=== PATIENT | female | born 1970 | race Caucasian/White ===

== ENCOUNTER 2023-01-24 02:47 | Emergency (ER) | payer OTHER, SELFPAY ==
[2023-01-24 02:50] VITALS: BP 150/86; PULSE 84; O2SAT 98
[2023-01-24 03:09] VITALS: BP 166/110; PULSE 115; RESP 30; TEMP 36.6; O2SAT 99; BMI 18.3
--- NOTE | 2023-01-24 04:46 | ED.OVERDOSE ---
HPI - Overdose General Chief Complaint: Overdose Stated Complaint: od Time Seen by Provider: 01/24/23 04:08 History of Present Illness HPI Narrative: Patient is a 52-year-old female with a history of heroin use. Patient was found in an apartment building after using 3 bags or heroin. Was given Narcan x2. Subsequently patient woke up. She has no complaints. Related Data Allergies Allergy/AdvReac Type Severity Reaction Status Date / Time codeine [CODEINE] Allergy Unknown RASH Unverified 06/04/20 19:25 tigecycline [From TYGACIL] Allergy Unknown RASH Unverified 06/04/20 19:25 TUNA FISH Allergy Intermediate RASH Uncoded 06/04/20 19:25 Review of Systems Review of Systems: Positive history of altered mental status, resolved after Narcan was administered No chest pain or shortness breath no dizziness Yes all other systems are reviewed and are negative FORMERLY [facility], 1928–1983 Past Medical History Attestation statement: The following information was validated with the patient. Social History Social History Advance Directives: No Advance Directives Information Provided: Yes Patient : No Physical Exam Vital Signs: Vital Signs: Last Vital Signs Temp 97.9 F 01/24/23 03:09 Pulse 115 H 01/24/23 03:09 Resp 30 H 01/24/23 03:09 BP 166/110 H 01/24/23 03:09 Pulse Ox 99 01/24/23 03:09 O2 Del Method Room Air 01/24/23 03:09 BMI result Body Mass Index 18.3 Middle age female looks older than stated age Appearance: Alert. Oriented X3. No acute distress. Eyes: Pupils equal, round and reactive to light. ENT: Pharynx normal. Neck: Normal inspection. Neck supple. No lymph nodes noted. No crepitus CVS: Normal heart rate and rhythm. Pulses normal. Normal S1 and S2 Respiratory: No respiratory distress. Breath sounds normal. No Wheezing. No rales Abdomen: Soft and nontender. No rigidity. No distention. good BS x4 Skin: Skin warm and dry. Normal skin color. Normal skin turgor. Extremities: No lower extremity edema. Neurovascular intact to all extremities. No Lacerations. No Rash Neuro: Oriented X 3. No motor deficit. No sensory deficit. Moving all extermities. No slurred speech Medical Decision Making Medical Decision Making MDM Narrative: Patient woke up with Narcan. Monitor in the emergency department for 2 hours. Is now awake alert ambulatory. Will discharge patient home. She is not suicidal not homicidal. Does not want detox at this time. Differential Diagnosis Differential Diagnoses: The differential diagnosis associated with the presentation includes Hypoglycemia, change of mental status secondary to heroin use, other recreational drug use Lab Data [facility] Lab Attestation statement: I reviewed the patient's lab results. Chronic Conditions Polysubstance abuse, Discharge Plan Discharge Clinical Impression: Drug overdose Patient Disposition: Home, Self-Care Instructions: Adult Overdose (ED) Additional Instructions: Please stop using heroin. Referrals: Physician,Unknown J [Primary Care Provider] - (Please go to detox)
[2023-01-24] MEDS: Naloxone HCl Nasal TAKE HOME 4 MG SPRAY NOSTRILALT (05:08)
== END 2023-01-24 06:13 | disposition home or self-care (01) ==
PROVIDERS: Emergency Provider Emergency Medicine Emergency Medical Services
DX: R41.82 Altered mental status, unspecified (principal); T40.1X1A Poisoning by heroin, accidental (unintentional), initial encounter; F11.90 Opioid use, unspecified, uncomplicated; Y92.039 Unspecified place in apartment as the place of occurrence of the external cause
CPT/HCPCS: 99284

== ENCOUNTER 2023-01-26 16:53 | Emergency (ER) | payer OTHER, SELFPAY ==
[2023-01-26] MEDS: Haloperidol Lactate 5 MG/ML VIAL 10 MG IM ×2 (17:05→18:47)
[2023-01-26] MEDS: diphenhydrAMINE HCL 50 MG/ML VIAL IM (17:05)
[2023-01-26] MEDS: LORazepam 2 MG/ML VIAL IM ×2 (17:05→18:47)
[2023-01-26 17:09] VITALS: PULSE 117; BMI 20.4
--- NOTE | 2023-01-26 17:15 | PC.NURSE ---
pt arrived with EMS in restraints. uncooperative and non redirectable. IM medications admin as well as physical restraints in place. security at the bedisde. will CTM behaviors.
[2023-01-26 17:34] VITALS: BP 182/58; PULSE 120; RESP 25; O2SAT 99
--- NOTE | 2023-01-26 17:47 | PC.NURSE ---
patient still being combative in the restraints. patient observer at the bedside. MD aware. will CTM
[2023-01-26 17:50] VITALS: BP 132/91; PULSE 112; RESP 24; TEMP 36.6; O2SAT 100
[2023-01-26 18:20] VITALS: BP 112/65; PULSE 106; RESP 22; TEMP 36.8; O2SAT 97
[2023-01-26 18:42] LABS: Eosinophils Absolute Auto 0.1 X10*3/uL (0.0-0.4); Eosinophils Percent Auto 0.7 % (0-4); Imm Gran Pct Auto 0.4 % (0.0-0.4); MANUAL DIFF FLAG SCAN; PLT CLUMP 1; Red Cell Distribution Width 14.3 % (11.0-16.0); SCAN SMEAR FLAG 1
--- NOTE | 2023-01-26 18:42 | PC.NURSE ---
patient continues to be combative. resisting restraints. ED provider aware.
[2023-01-26 18:43] LABS: Basophils Absolute Auto 0.1 X10*3/uL (0.0-0.2); Basophils Percent Auto 0.7 % (0-2); Hematocrit 41.4 % (37.0-47.0); Hemoglobin 13.4 g/dl (12.0-16.0); Imm Gran Abs Auto 0.04 X10*3/uL (0.00-0.03); Lymphocytes Absolute Auto 1.3 X10*3/uL (1.2-4.9); Lymphocytes Percent Auto 11.7 % (20-40); Mean Corpuscular HGB Conc 32.4 g/dl (31.0-35.0); Mean Corpuscular Hemoglobin 29.8 pg (27.0-33.0); Mean Corpuscular Volume 92.2 fL (80.0-98.0); Mean Platelet Volume 10.9 fL (9.4-12.3); Monocytes Absolute Auto 0.6 X10*3/uL (0.1-1.2); Monocytes Percent Auto 5.1 % (2-11); Neutrophils Absolute Auto 9.1 x10*3/uL (2.0-8.3); Neutrophils Percent Auto 81.4 % (45-73); Red Blood Count 4.49 X10*6/uL (4.20-5.50)
[2023-01-26 18:47] LABS: Platelet Count 129 X10*3/uL (160-400); White Blood Count 11.2 X10*3/uL (4.8-10.8)
[2023-01-26 18:56] LABS: Alanine Aminotransferase 25 U/L (0-31); Albumin Level 3.9 g/dL (3.5-5.0); Alkaline Phosphatase 95 U/L (39-117); Anion Gap 13 (12-20); Aspartate Amino Transferase 48 U/L (5-31); Bilirubin Total 0.9 mg/dL (0.0-1.0); Blood Urea Nitrogen 15 mg/dL (9-16); Calcium 9.7 mg/dL (8.4-10.2); Carbon Dioxide 29 mmol/L (22-29); Chloride 105 mmol/L (96-108); Estimated Glomerular Filt Rate > 60; Ethanol < 10 mg/dL; Glucose Random 123 mg/dL (60-115); Lipase 15 U/L (8-78); Potassium 3.8 mmol/L (3.3-5.1); Sodium 143 mmol/L (135-145); Total Protein 7.3 g/dL (6.5-8.0)
[2023-01-26 19:02] LABS: Appearance Urine Clear; Color Urine Yellow; Glucose Urine UA Negative (Negative); Leukocyte Esterase Urine Negative (Negative); Nitrite Urine Negative (Negative); Specific Gravity - Urine <= 1.005 (1.005-1.025); Urine Blood Negative (Negative); Urine Ketones Negative (Negative); Urine Protein Negative (Neg-Trace)
[2023-01-26 19:08] LABS: Amphetamine Screen Urine Not Detected (Not Detect); Barbiturates, Urine Not Detected (Not Detect); Benzodiazepines Screen Urine Not Detected (Not Detect); Cannabinoid Screen Urine Not Detected (Not Detect); Cocaine Screen Urine POSITIVE (Not Detect); Fentanyl, urine POSITIVE (Not Detect); Opiate Screen Urine Not Detected (Not Detect); Phencyclidine Screen Urine Not Detected (Not Detect)
[2023-01-26 19:19] LABS: SLIDE REVIEW VERIFIED
[2023-01-26 19:59] VITALS: BP 169/65; PULSE 115; RESP 20; TEMP 36.8; O2SAT 97
--- NOTE | 2023-01-26 20:28 | PC.NURSE ---
Addendum entered by Claudia Watson 01/26/23 20:29: Respirations even and unlabored. Original Note: Restraints removed at this time. Pt resting quietly with eyes closed.
[2023-01-26 22:00] VITALS: BP 109/60; PULSE 82; RESP 15; TEMP 36.9; O2SAT 95
[2023-01-27] VITALS (10 sets, daily range): BP systolic 99–118; BP diastolic 48–65; PULSE 77–103; RESP 10–16; TEMP 35.7–37.1; O2SAT 95–100
--- NOTE | 2023-01-27 02:22 | ED.OVERDOSE ---
HPI - Overdose General Chief Complaint: ETOH/Substance Use Stated Complaint: Overdose Time Seen by Provider: 01/26/23 16:58 Source: EMS Mode of arrival: EMS Limitations: altered mental status History of Present Illness HPI Narrative: 52-year-old female who was brought to emergency department by EMS for evaluation of overdose. The patient was too agitated on presentation to give a history in the information was obtained from EMS. Apparently the patient was found unresponsive in a longer room. The police for 1st responders and they administered a mg of intranasal Narcan. The patient woke up and then became very combative. The patient had to be restrained by EMS and the police for transport. On presentation to the emergency department she was very agitated, she was striking out at staff and trying to get off the stretcher. She was placed in 4 point restraints by security and by nursing staff. The patient was also chemically restrained with Haldol 10 mg IM, Benadryl 50 mg IM and Ativan 2 mg IM. The patient remained agitated after approximately 45 minutes and required a 2nd dose of Haldol 10 mg IM and Ativan 2 mg IM with good results. There are no old records on this patient in our EMR. Related Data Allergies Allergy/AdvReac Type Severity Reaction Status Date / Time codeine [CODEINE] Allergy Unknown RASH Verified 01/26/23 19:19 tigecycline [From TYGACIL] Allergy Unknown RASH Verified 01/26/23 19:19 TUNA FISH Allergy Intermediate RASH Uncoded 01/26/23 19:19 Review of Systems Review of Systems: Yes Unobtainable due to mental condition PMFSH Social History Social History Advance Directives: No Advance Directives Information Provided: No Physical Exam Vital Signs: Vital Signs: Last Vital Signs Temp 98.4 F 01/26/23 22:00 Pulse 82 01/26/23 22:00 Resp 15 01/26/23 22:00 BP 109/60 01/26/23 22:00 Pulse Ox 95 01/26/23 22:00 O2 Del Method Nasal Cannula 01/26/23 22:00 O2 Flow Rate 2 01/26/23 22:00 BMI result Body Mass Index 20.4 Vital signs were normal General: Patient is awake, combative, unable to be redirected HEENT: Head was normal cephalic and atraumatic, pupils were equal round reactive light, sclera contact however normal, mouth revealed moist membranes Neck: Supple, no adenopathy Chest: Nontender Lungs: Clear to auscultation breath sounds symmetric bilaterally Heart: Regular rate rhythm, normal S1-S2, no murmurs rubs or gallops Abdomen: Soft, nontender, nondistended, normoactive bowel sounds Extremities: Moves all extremities symmetrically Neurologic exam: Appears to be nonfocal but patient is uncooperative and difficult to assess Medications Administered Discontinued Medications Generic Name Dose Route Start Last Admin Trade Name Freq PRN Reason Stop Dose Admin Diphenhydramine HCl 50 mg 01/26/23 16:58 01/26/23 17:05 Diphenhydramine Hcl 50 Mg/Ml Vial IM 01/26/23 16:59 50 mg ONCE STA Administration Haloperidol Lactate 10 mg 01/26/23 16:58 01/26/23 17:05 Haloperidol Lactate 5 Mg/Ml Vial IM 01/26/23 16:59 10 mg ONCE ONE Administration Haloperidol Lactate 10 mg 01/26/23 18:42 01/26/23 18:47 Haloperidol Lactate 5 Mg/Ml Vial IM 01/26/23 18:43 10 mg ONCE ONE Administration Lorazepam 2 mg 01/26/23 16:58 01/26/23 17:05 Lorazepam 2 Mg/Ml Vial IM 01/26/23 16:59 2 mg STAT STA Administration Lorazepam 2 mg 01/26/23 18:40 01/26/23 18:47 Lorazepam 2 Mg/Ml Vial IM 01/26/23 18:41 2 mg STAT STA Administration Medical Decision Making Medical Decision Making [facility] [place] Narrative: 52-year-old female who was brought to emergency department by ambulance after being found unresponsive in a laundry room. Patient did wake up after receiving 8 mg of intranasal Narcan. The patient was combative and required restraint by paramedics and please for transport and on presentation to the emergency department she was extremely agitated combative and we were unable to redirect her. The patient was therefore placed in restraints and given Haldol, Benadryl and Ativan IM. She required a 2nd dose of Haldol and Ativan IM in order to calm her down. 0227: My independent interpretation patient's laboratory evaluation is as follows: WBC elevated 11,200, platelet count low 129,000-this is chronic. Glucose elevated 123. AST elevated 48. CK was elevated 149 most likely secondary to her the combative and required restraints. Urinalysis was negative. Urine tox screen was positive for fentanyl and cocaine. Start physician observation: The patient is currently somnolent but arousable. The patient will require further time in the emergency department until she wakes up in can be further interview to determine if she is suicidal, homicidal or if this was an unintentional overdose. She will also need a SUDE exam. At the end of my shift, the patient's care was turned over to my colleague, Dr. Montoya. Differential Diagnosis Differential diagnosis includes but is not limited to opiate overdose, benzodiazepine overdose, stroke, electrolyte abnormality, encephalopathy Admission/Observation Consideration of admission/observation: Escalation of care including admission/observation considered Lab Data [facility] [place] Lab Attestation statement: I reviewed the patient's lab results. See [facility] 01/26/23 18:36 01/26/23 18:36 Labs: Lab Results 01/26/23 01/26/23 01/26/23 Range/Units 18:36 18:36 18:54 WBC 11.2 H (4.8-10.8) X10*3/uL RBC 4.49 (4.20-5.50) X10*6/uL Hgb 13.4 (12.0-16.0) g/dl Hct 41.4 (37.0-47.0) % MCV 92.2 (80.0-98.0) fL MCH 29.8 (27.0-33.0) pg MCHC 32.4 (31.0-35.0) g/dl RDW 14.3 (11.0-16.0) % Plt Count 129 L (160-400) X10*3/uL MPV 10.9 (9.4-12.3) fL Immature Gran % (Auto) 0.4 (0.0-0.4) % Neut % (Auto) 81.4 H (45-73) % Lymph % (Auto) 11.7 L (20-40) % [place] % (Auto) 5.1 (2-11) % Eos % (Auto) 0.7 (0-4) % Baso % (Auto) 0.7 (0-2) % Lymph # (Auto) 1.3 (1.2-4.9) X10*3/uL [place] # (Auto) 0.6 (0.1-1.2) X10*3/uL Eos # (Auto) 0.1 (0.0-0.4) X10*3/uL Baso # (Auto) 0.1 (0.0-0.2) X10*3/uL Abs Immat Gran (auto) 0.04 H (0.00-0.03) X10*3/uL Absolute Neuts (auto) 9.1 H (2.0-8.3) x10*3/uL Absolute Nucleated RBC 0.000 (0.0-0.012) X10*3/uL Nucleated RBC % (auto) 0.0 (0.0-0.2) /100WBC Smear Tech's Comments VERIFIED Sodium 143 (135-145) mmol/L Potassium 3.8 (3.3-5.1) mmol/L Chloride 105 (96-108) mmol/L Carbon Dioxide 29 (22-29) mmol/L Anion Gap 13 (12-20) BUN 15 (9-16) mg/dL Creatinine 0.83 (0.5-1.4) mg/dL Estim Creat Clear Calc 66.0 Estimated GFR > 60 Random Glucose 123 H (60-115) mg/dL Calcium 9.7 (8.4-10.2) mg/dL Total Bilirubin 0.9 (0.0-1.0) mg/dL AST 48 H (5-31) U/L ALT 25 (0-31) U/L Alkaline Phosphatase 95 (39-117) U/L Total Creatine Kinase 849 H (26-140) U/L Total Protein 7.3 (6.5-8.0) g/dL Albumin 3.9 (3.5-5.0) g/dL Lipase 15 (8-78) U/L Urine Color Yellow Urine Appearance Clear Urine pH 8.0 (5.0-9.0) Ur Specific [place] <= 1.005 (1.005-1.025) Urine Protein Negative (Neg-Trace) mg/dL Urine Glucose (UA) Negative (Negative) mg/dL Urine Ketones Negative (Negative) mg/dL Urine Blood Negative (Negative) Urine Nitrite Negative (Negative) Ur Leukocyte Esterase Negative (Negative) Urine Opiates Screen (Not Detect) Urine Fentanyl Screen (Not Detect) Ur Barbiturates Screen (Not Detect) Ur Phencyclidine Scrn (Not Detect) Ur Amphetamines Screen (Not Detect) U Benzodiazepines Scrn (Not Detect) Urine Cocaine Screen (Not Detect) U Marijuana (THC) Screen (Not Detect) Ethyl Alcohol < 10 mg/dL 01/26/23 Range/Units 18:54 WBC (4.8-10.8) X10*3/uL RBC (4.20-5.50) X10*6/uL Hgb (12.0-16.0) g/dl Hct (37.0-47.0) % MCV (80.0-98.0) fL MCH (27.0-33.0) pg MCHC (31.0-35.0) g/dl RDW (11.0-16.0) % Plt Count (160-400) X10*3/uL MPV (9.4-12.3) fL Immature Gran % (Auto) (0.0-0.4) % Neut % (Auto) (45-73) % Lymph % (Auto) (20-40) % [place] % (Auto) (2-11) % Eos % (Auto) (0-4) % Baso % (Auto) (0-2) % Lymph # (Auto) (1.2-4.9) X10*3/uL [place] # (Auto) (0.1-1.2) X10*3/uL Eos # (Auto) (0.0-0.4) X10*3/uL Baso # (Auto) (0.0-0.2) X10*3/uL Abs Immat Gran (auto) (0.00-0.03) X10*3/uL Absolute Neuts (auto) (2.0-8.3) x10*3/uL Absolute Nucleated RBC (0.0-0.012) X10*3/uL Nucleated RBC % (auto) (0.0-0.2) /100WBC Smear Tech's Comments Sodium (135-145) mmol/L Potassium (3.3-5.1) mmol/L Chloride (96-108) mmol/L Carbon Dioxide (22-29) mmol/L Anion Gap (12-20) BUN (9-16) mg/dL Creatinine (0.5-1.4) mg/dL Estim Creat Clear Calc Estimated GFR Random Glucose (60-115) mg/dL Calcium (8.4-10.2) mg/dL Total Bilirubin (0.0-1.0) mg/dL AST (5-31) U/L ALT (0-31) U/L Alkaline Phosphatase (39-117) U/L Total Creatine Kinase (26-140) U/L Total Protein (6.5-8.0) g/dL Albumin (3.5-5.0) g/dL Lipase (8-78) U/L Urine Color Urine Appearance Urine pH (5.0-9.0) Ur Specific [place] (1.005-1.025) Urine Protein (Neg-Trace) mg/dL Urine Glucose (UA) (Negative) mg/dL Urine Ketones (Negative) mg/dL Urine Blood (Negative) Urine Nitrite (Negative) Ur Leukocyte Esterase (Negative) Urine Opiates Screen Not Detected (Not Detect) Urine Fentanyl Screen POSITIVE H (Not Detect) Ur Barbiturates Screen Not Detected (Not Detect) Ur Phencyclidine Scrn Not Detected (Not Detect) Ur Amphetamines Screen Not Detected (Not Detect) U Benzodiazepines Scrn Not Detected (Not Detect) Urine Cocaine Screen POSITIVE H (Not Detect) U Marijuana (THC) Screen Not Detected (Not Detect) Ethyl Alcohol mg/dL Discharge Plan Discharge Clinical Impression: Narcotic overdose, Cocaine use, Agitation Patient Disposition: Still a Patient
[2023-01-27] MEDS: 0.9 % Sodium Chloride 2,000 ML 999 ML IVCONT (03:07)
--- NOTE | 2023-01-27 06:29 | PC.NURSE ---
pt cleansed of urinary incontinence. calm and cooperative at this time.
--- NOTE | 2023-01-27 06:45 | PC.NURSE ---
Report to Faiza NAYLOR.
--- NOTE | 2023-01-27 06:52 | PC.NURSE ---
Resumed care of patient this morning, she is currently still sleeping with 1:1 at bedside, vitals stable, O2 in place via NC. awaitng careteam at this time
--- NOTE | 2023-01-27 09:00 | HO.SUDE ---
Late entry- Met with pt in ED21 after pt presented to ED after overdose requiring Narcan. Pt quite somnolent, wakes to touch. Difficult to engage in conversation due to drowsiness. Pt does report using heroin, 1 bag on 01/25 and 2 bags on 01/26, which resulted in overdose. Pt denies hx overdoses in the past. Pt had not used heroin in months. Pt reports going to [facility] and receiving 60 mg methadone daily. Pt continually falling asleep during conversation, Recovery Body Man to check in when more awake.
--- NOTE | 2023-01-27 11:33 | MHC.RECOVSUP ---
attempted to meet with pt in ED21 but she was not able to wake up. T/W left recovery resources at bedside and will try to meet with her again to review them.
--- NOTE | 2023-01-27 19:21 | MHC.EDTECH ---
THIS PCT ASSUMED CARE OF PATIENT AT 1900 ,PATIENT SLEEPING ,WOKE UP WHILE TAKING VITALS SIGN ,THEN BACK SLEEPING ,PATIENT OBSERVER AT BEDSIDE .
--- NOTE | 2023-01-28 00:12 | PC.NURSE ---
pt asleep respirations even and unlabored
--- NOTE | 2023-01-28 02:34 | MHC.EDTECH ---
PATIENT WAS A 1 ASST WITH AMBULATION TO BATHROOM AND BACK TO BED ,PT VOID LARGE AMOUNT OF URINE ,PATIENT ATE A HAM SANDWICH AND DRANK A CAN OF LUIS DURAN ,PATIENT IS ALERT AND ORIENTED .
[2023-01-28 06:00] VITALS: BP 187/77; PULSE 83; RESP 14; TEMP 36.7; O2SAT 98
--- NOTE | 2023-01-28 06:13 | PC.NURSE ---
bp high 187/77 provider aware
--- NOTE | 2023-01-28 07:04 | PC.NURSE ---
patient sleeping, wakes to verbal stimulus, pt currently denying pain/discomfort, business strategist intact nsr, camera for patient safety intact, call mckinnon within reach, will continue to monitor.
--- NOTE | 2023-01-28 07:55 | PC.NURSE ---
patient ambulated with [place] [facility] [place] to bathroom- pt ambulated with a steady gait and was independent to/from bathroom.
--- NOTE | 2023-01-28 08:21 | PC.NURSE ---
care team calling for sumi to send patient home as she had no transportation, pts clothes were wet- she was given clothing to discharge home in. patient a&ox3 ambulating independently with steady gait upon discharge
== END 2023-01-28 08:22 | disposition home or self-care (01) ==
PROVIDERS: Emergency Provider Emergency Medicine Emergency Medical Services
DX: T40.2X1A Poisoning by other opioids, accidental (unintentional), initial encounter (principal); R26.2 Difficulty in walking, not elsewhere classified; Y92.9 Unspecified place or not applicable; F14.10 Cocaine abuse, uncomplicated; Z79.899 Other long term (current) drug therapy
CPT/HCPCS: 36415; 80053; 80307; 81003; 82550; 83690; 85025; 96360; 96361; 96372; 97161; 99285; J1200; J2060

== ENCOUNTER 2023-03-19 06:30 | Emergency (ER) | payer OTHER, SELFPAY ==
[2023-03-19] VITALS (11 sets, daily range): BP systolic 110–144; BP diastolic 62–89; PULSE 79–128; RESP 14–18; TEMP 36.2–37.1; O2SAT 91–100; BMI 18.2
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
--- NOTE | 2023-03-19 07:35 | PC.NURSE ---
Alert, thrasing from side to side in bed, Difficulty to re direct. IV placed in top of right hand. 100% on Ra, no sob noted. lungs clear bilaterally. Ambulated to bathroom with assistance and voided large amount of clear yellow urine. NSR on monitor. Denies pain or discomfort.
--- NOTE | 2023-03-19 07:46 | PC.NURSE ---
Carboxyhemaglobin returned elevated- placed on oxymask at 10 liters per PA verbal order
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
--- NOTE | 2023-03-19 08:35 | PC.NURSE ---
Continues to be restless, attempting to get out of bed, sliding herself from side to side in bed. Ambulated multiple times with staff to bathroom. Denies pain or discomfort. Denies chest pain, sob, or headache. Continues on oxymnask at 10 liters.
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
--- NOTE | 2023-03-19 09:52 | PC.NURSE ---
Patient removed iv in in top of right hand. New iv placed in right arm. Continues to be restless, kicking at staff. VSS.
--- NOTE | 2023-03-19 10:23 | PC.NURSE ---
Removed bp cuff, oxy mask, and telemetry monitoring. Ambulated with staff to bathroom. Declined to have BP cuff and cardiac monitoring re applied at this time. States feeling better and denies pain or discomfort.
--- NOTE | 2023-03-19 11:19 | PC.NURSE ---
Oxymask removed by provider. sating 97% on RA at this time
--- NOTE | 2023-03-19 11:28 | PC.NURSE ---
NSR on monitor, 96% on RA, resting quietly in bed at this time
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
--- NOTE | 2023-03-19 11:57 | PC.NURSE ---
Patient without any sob, coughing, or respiratory distress. Remains on RA sating 96%. Resting comfortably in bed.
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
--- NOTE | 2023-03-19 14:55 | PC.NURSE ---
Alert but slow to respond. Denies pain, states to leave her alone so she can sleep. NSR on monitor. VSS. Assisted patient to help re position herself
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
--- NOTE | 2023-03-19 18:10 | PC.NURSE ---
Alert and responsive, able to answer questions. Reports no pain or discomfort. NSR on monitor , vss
== END 2023-03-19 19:45 | disposition home or self-care (01) ==
PROVIDERS: Emergency Provider Emergency Medicine Emergency Medical Services
DX: T59.811A Toxic effect of smoke, accidental (unintentional), initial encounter (principal); T50.901A Poisoning by unspecified drugs, medicaments and biological substances, accidental (unintentional), initial encounter; Y92.9 Unspecified place or not applicable; Y92.009 Unspecified place in unspecified non-institutional (private) residence as the place of occurrence of the external cause; J44.9 Chronic obstructive pulmonary disease, unspecified
CPT/HCPCS: 36415; 71045; 80048; 80076; 80307; 81001; 82375; 82803; 84484; 85025; 87086; 93005; 99284; 99285; J2405

== ENCOUNTER 2023-04-20 11:47 | Outpatient (REF) | payer OTHER, SELFPAY ==
[2023-04-20 13:21] LABS: MANUAL DIFF FLAG NO
[2023-04-20 13:46] LABS: Basophils Percent Auto 0.8 % (0-2); Eosinophils Absolute Auto 0.2 X10*3/uL (0.0-0.4); Eosinophils Percent Auto 3.6 % (0-4); Hematocrit 47.8 % (37.0-47.0); Hemoglobin 14.8 g/dl (12.0-16.0); Imm Gran Abs Auto 0.01 X10*3/uL (0.00-0.03); Imm Gran Pct Auto 0.2 % (0.0-0.4); Lymphocytes Absolute Auto 1.6 X10*3/uL (1.2-4.9); Lymphocytes Percent Auto 32.6 % (20-40); Mean Corpuscular Hemoglobin 30.6 pg (27.0-33.0); Mean Platelet Volume 11.3 fL (9.4-12.3); Monocytes Absolute Auto 0.4 X10*3/uL (0.1-1.2); Monocytes Percent Auto 7.6 % (2-11); Neutrophils Absolute Auto 2.8 x10*3/uL (2.0-8.3); Neutrophils Percent Auto 55.2 % (45-73); Platelet Count 116 X10*3/uL (160-400); Red Blood Count 4.83 X10*6/uL (4.20-5.50)
[2023-04-20 14:14] LABS: Alanine Aminotransferase 17 U/L (0-31); Albumin Level 4.1 g/dL (3.5-5.0); Alkaline Phosphatase 98 U/L (39-117); Anion Gap 15 (12-20); Aspartate Amino Transferase 26 U/L (5-31); Bilirubin Total 0.3 mg/dL (0.0-1.0); Blood Urea Nitrogen 15 mg/dL (9-16); Carbon Dioxide 29 mmol/L (22-29); Chloride 102 mmol/L (96-108); Estimated Glomerular Filt Rate > 60; Glucose Random 63 mg/dL (60-115); Potassium 3.9 mmol/L (3.3-5.1); Sodium 142 mmol/L (135-145); Total Protein 8.3 g/dL (6.5-8.0)
[2023-04-21 05:13] LABS: Syphilis Screen Nonreactive (Nonreactive)
[2023-04-21 05:39] LABS: HBc Num1 0.25 S/CO (0.00-0.79); HBsAGNum1 0.32 S/CO (0.00-0.99); HIV AB/AG Nonreactive (Nonreactive); HIV Num 1 0.04 S/CO (0.00-0.99); Hepatitis A Antibody IgM 0.44 Index (0-0.79); Hepatitis B Core Antibody Nonreactive (Nonreactive); Hepatitis B Surface Antigen Negative (Negative); ~HepC Num1 3.76 S/CO (0.00-0.79); ~Hepatitis A Antibody IgM Nonreactive (Nonreactive); ~Hepatitis B Surface Antibody REACTIVE (Nonreactive); ~Hepatitis C Antibody Reactive (Nonreactive)
== END 2023-04-20 11:48 | disposition home or self-care (01) ==
LOC: HO.HHCL 11:47
PROVIDERS: Visit Provider Registered Nurse
DX: Z11.4 Encounter for screening for human immunodeficiency virus [HIV] (principal); F11.29 Opioid dependence with unspecified opioid-induced disorder
CPT/HCPCS: 36415; 80053; 85025; 86704; 86706; 86709; 86780; 86803; 87340; 87389

== ENCOUNTER 2023-06-22 14:40 | Emergency (ER) | payer OTHER, SELFPAY ==
--- NOTE | 2023-06-22 14:48 | ED.OVERDOSE ---
HPI - Overdose General Chief Complaint: Overdose Stated Complaint: ?OD,AMS,NARCAN GIVENAWAKE/NOT ALERT,SMOKED CRACK Time Seen by Provider: 06/22/23 14:47 History of Present Illness HPI Narrative: Patient is a 53-year-old female presents today with having altered mental status decreased respiratory rate was noted by EMS to have a low respiratory rate around 6. Was given for Narcan with good results. Subsequently patient woke up still somewhat lethargic. Has a history of recreational drug use. Patient stated she used heroin and cocaine. Related Data Allergies Allergy/AdvReac Type Severity Reaction Status Date / Time codeine [CODEINE] Allergy Unknown RASH Verified 01/26/23 19:19 tigecycline [From TYGACIL] Allergy Unknown RASH Verified 01/26/23 19:19 TUNA FISH Allergy Intermediate RASH Uncoded 01/26/23 19:19 Review of Systems Review of Systems: Positive recreational drug use [facility] Past Medical History Attestation statement: The following information was validated with the patient. Medical History Bipolar disorder Opioid dependence Hepatitis C COPD (chronic obstructive pulmonary disease) Multiple sclerosis Social History Social History Alcohol intake: unknown Advance Directives: No Advance Directives Information Provided: No Physical Exam Vital Signs: Vital Signs: Last Vital Signs Temp 98.2 F 06/22/23 15:00 Pulse 69 06/22/23 18:19 Resp 12 06/22/23 18:19 BP 112/66 06/22/23 18:19 Pulse Ox 95 06/22/23 18:19 O2 Del Method Room Air 06/22/23 18:19 Oxygen Flow Rate 2 06/22/23 15:00 BMI result Body Mass Index 42.3 Appearance: Lethargic arousable to painful stimuli mumbles Eyes: Pupils equal, round and reactive to light. ENT: Pharynx normal. Neck: Normal inspection. Neck supple. No lymph nodes noted. No crepitus CVS: Normal heart rate and rhythm. Pulses normal. Normal S1 and S2 Respiratory: Diminished breath sounds bilaterally Abdomen: Soft and nontender. No rigidity. No distention. good BS x4 Skin: Skin warm and dry. Normal skin color. Normal skin turgor. Extremities: No lower extremity edema. Neurovascular intact to all extremities. No Lacerations. No Rash Neuro: Oriented X 3. No motor deficit. No sensory deficit. Moving all extermities. No slurred speech Medications Administered Discontinued Medications Generic Name Dose Route Start Last Admin Trade Name Camryn PRN Reason Stop Dose Admin Sodium Chloride 1,000 mls @ 999 mls/hr 06/22/23 15:00 06/22/23 15:07 Ns IV 06/22/23 16:00 999 mls/hr .Q1H1M BIJAL Administration Naloxone HCl 4 mg 06/22/23 14:56 06/22/23 15:07 Naloxone Hcl Nasal 4 Mg Gustavus NOSTRILALT 06/22/23 14:57 4 mg ONCE ONE Administration Medical Decision Making Medical Decision Making [facility] Narrative: Patient presented with decreased respiratory rate altered mental status more lethargy. Admits to using cocaine and heroin. Part a defect me be the downside of cocaine. Part of it may be secondary to narcotics. Patient was given a dose of Narcan as she had severe decreased respiratory rate while in the emergency department. Symptoms seems to have improved. Now is breathing spontaneously is awake alert had a meal monitor in the emergency department for at least 3 hours. Patient not suicidal not homicidal wants to go home. My interpretation patient's chest x-ray showed no acute infiltrate. Patient's hemoglobin is 13.5 no evidence for anemia. BUN and creatinine consistent with dehydration. Patient's BUN is 29 creatinine 0.74. IV fluid was ordered. Patient is tolerating p.o. wants go home will discharge home. Alcohol less than 10 Differential Diagnosis Differential Diagnoses: The differential diagnosis associated with the presentation includes Pneumonia, polysubstance abuse, hypoxia, hypoglycemia Admission/Observation Consideration of admission/observation: Escalation of care including admission/observation considered No need for admission as patient's symptoms improved with time. Lab Data [facility] Lab Attestation statement: I reviewed the patient's lab results. 06/22/23 15:40 06/22/23 15:40 Labs: Lab Results 06/22/23 Range/Units 15:40 WBC 7.2 (4.8-10.8) X10*3/uL RBC 4.37 (4.20-5.50) X10*6/uL Hgb 13.5 (12.0-16.0) g/dl Hct 39.9 (37.0-47.0) % MCV 91.3 (80.0-98.0) fL MCH 30.9 (27.0-33.0) pg MCHC 33.8 (31.0-35.0) g/dl RDW 13.4 (11.0-16.0) % Plt Count TNP MPV 11.4 (9.4-12.3) fL Immature Gran % (Auto) 0.6 H (0.0-0.4) % Neut % (Auto) 64.9 (45-73) % Lymph % (Auto) 22.1 (20-40) % Preble % (Auto) 10.1 (2-11) % Eos % (Auto) 1.5 (0-4) % Baso % (Auto) 0.8 (0-2) % Lymph # (Auto) 1.6 (1.2-4.9) X10*3/uL Preble # (Auto) 0.7 (0.1-1.2) X10*3/uL Eos # (Auto) 0.1 (0.0-0.4) X10*3/uL Baso # (Auto) 0.1 (0.0-0.2) X10*3/uL Abs Immat Gran (auto) 0.04 H (0.00-0.03) X10*3/uL Absolute Neuts (auto) 4.7 (2.0-8.3) x10*3/uL Absolute Nucleated RBC 0.000 (0.0-0.012) X10*3/uL Nucleated RBC % (auto) 0.0 (0.0-0.2) /100WBC Smear Tech's Comments VERIFIED Sodium 141 (135-145) mmol/L Potassium 4.6 (3.3-5.1) mmol/L Chloride 103 (96-108) mmol/L Carbon Dioxide 22 (22-29) mmol/L Anion Gap 21 H (12-20) BUN 29 H (9-16) mg/dL Creatinine 0.74 (0.5-1.4) mg/dL Estim Creat Clear Calc 101.2 Estimated GFR > 60 Random Glucose 87 (60-115) mg/dL Calcium 10.0 (8.4-10.2) mg/dL Ethyl Alcohol < 10 mg/dL Independent Interpretation I performed an independent interpretation of an: Plain X-Ray (Chest x-ray negative for pneumonia. No pneumothorax) Radiology Impression Discussion of test interpretation with radiology: I have reviewed the radiologist's reading. External Record Review ED record reviewed Chronic Conditions Polysubstance abuse Critical Care Time Critical Care Time Critical Care Time: Yes Total Critical Care Time: 40 Attestation: I have personally provided 40 minutes of critical care time exclusive of time spent on separately billable procedures. Time includes review of lab data, radiology results, discussion with consultants, and monitoring for potential decompensation. Interventions were performed as documented above Discharge Plan Discharge Clinical Impression: Drug overdose Patient Disposition: Home, Self-Care Instructions: Cocaine Abuse (ED), Adult Overdose (ED), Narcotic Use Disorder (ED) Referrals: Physician,Unknown J [Primary Care Provider] - (Please go to detox.)
[2023-06-22 15:00] VITALS: BP 145/61; BP 160/90; PULSE 79; PULSE 80; RESP 18; TEMP 36.8; O2SAT 95; BMI 42.3
[2023-06-22 16:04] LABS: Anion Gap 21 (12-20); Blood Urea Nitrogen 29 mg/dL (9-16); Carbon Dioxide 22 mmol/L (22-29); Chloride 103 mmol/L (96-108); Creatinine Clr Calc Pharmacy 101.2; Estimated Glomerular Filt Rate > 60; Ethanol < 10 mg/dL; Glucose Random 87 mg/dL (60-115); Potassium 4.6 mmol/L (3.3-5.1); Sodium 141 mmol/L (135-145)
[2023-06-22 16:22] VITALS: BP 155/75; PULSE 76; RESP 16; O2SAT 97
--- NOTE | 2023-06-22 16:46 | PC.NURSE ---
This RN assumed care upon patient arrival.
--- NOTE | 2023-06-22 17:53 | HO.SUDE ---
This verse writer met with patient to complete SUDE. Pt BIBA for suspected overdose. Pt was drousy, sedated, reports smoking crack [employer], reports is homeless. Pt unable to answer this writers questions at this time, pt falling asleep during assessment. Recovery resources left at the bedside.
[2023-06-22 18:19] VITALS: BP 112/66; PULSE 69; RESP 12; O2SAT 95
--- NOTE | 2023-06-22 20:00 | PC.NURSE ---
This RN assumed care upon patient arrival. Patient refusing to leave at this time, security called. Patient given d/c paperwork and was escorted out by security
== END 2023-06-22 20:00 | disposition home or self-care (01) ==
PROVIDERS: Emergency Provider Emergency Medicine Emergency Medical Services
DX: T40.1X1A Poisoning by heroin, accidental (unintentional), initial encounter (principal); T40.5X1A Poisoning by cocaine, accidental (unintentional), initial encounter; R53.83 Other fatigue; F11.20 Opioid dependence, uncomplicated; Y92.9 Unspecified place or not applicable; G35 Multiple sclerosis; B19.20 Unspecified viral hepatitis C without hepatic coma; J44.9 Chronic obstructive pulmonary disease, unspecified
CPT/HCPCS: 36415; 71045; 80048; 80307; 85025; 99284

== ENCOUNTER 2024-04-26 08:17 | Outpatient (REF) | payer OTHER, SELFPAY ==
--- NOTE | ~2024-04-26 | CT_ITS ---
EXAMINATION: CT CHEST WITH CONTRAST CLINICAL INFORMATION: Follow-up aspiration pneumonia COMPARISON: Chest film dated 06/22/2023 TECHNIQUE: Multidetector volumetric CT imaging of the chest was obtained after the administration of 65 mL of Omnipaque 350 intravenous contrast without immediate adverse reactions. Axial MIP volume rendering provided. Sagittal and coronal reformatted images were obtained. This CT examination was performed using dose optimization techniques as appropriate, variously including the following: *Automated exposure control *Adjustment of mA and/or kV according to patient size (this includes techniques or standardized protocols for targeted exams where dose is matched to indication/reason for exam; i.e. extremities or head) *Use of iterative reconstruction technique DLP: 112 mGy-cm FINDINGS: This study is just now presented to me for dictation. The thoracic inlet is felt to be within normal limits. The axillary regions are felt to be unremarkable. Partially imaged upper abdominal structures demonstrate some palpable dilatation of the common duct. 1.6 cm. This is significant. Recommend ultrasound there is also mild intrahepatic ductal dilatation. Again the liver in this area is only partially seen. Centrally no significant coronary calcium is seen. There is no bulky central adenopathy. Findings do suggest mild to moderate hilar adenopathy. Imaging in the lung ely. Right lung; Examinations demonstrating bronchial thickening throughout the lungs and this is most significant in several segments in the right lower lung. There are few segments of bronchial occlusion likely from plugging inferior medial lung zone. Findings suggest COPD with lucencies in the lungs. There is no significant infiltrate or effusion. Scattered areas of nodularity are noted. There is a 5 mm nodule in image 100. Numerous other smaller nodules are noted. Left lung; Again exam is most significant for bronchial thickening. There is also COPD. Motion degrades evaluation in the left lower lobe No significant peripheral infiltrate or effusion is seen. As a lesion on image 73 of series 5. This is measuring 1 cm. Characterized by central lucency with peripheral ring of soft tissue. This could be the sequela of infection. Underlying malignancy cannot be excluded. Calcified granuloma on image 82 Otherwise small scattered sub-3 mm nodules are seen. Review of the bone windows demonstrates fracture of the proximal sternum. There is surrounding sclerosis. Given the appearance of underlying lesion cannot be excluded. Some bony density seen just anterior to this region. Chronic infection would also be a consideration. There is also a questionable step off and expansion of the mid to inferior sternum. Again this could be sequela of previous injury. CT/CT chest w IV con IMPRESSION: This study is just now presented to me for dictation. Findings are as described above. As exam is most remarkable for bronchial thickening and several areas of peripheral bronchial plugging in the right lower lobe medially. No significant infiltrate or effusion is seen at this time. Mild to moderate hilar adenopathy may be reactive. Attention of follow-up Areas of lung nodularity are described and there is a 1 cm nodule centrally in the left lung with central lucency and peripheral increased soft tissue in a ringlike fashion. This could be infection. Underlying malignancy of course cannot be excluded. Consider PET CT at this time to further evaluate. If not selected for then follow-up 3 month low-dose noncontrast scan would be recommended. Also of note here is abnormal appearing sternum. Superiorly there appears to be a fracture and given the appearance and underlying lesion cannot be excluded. There is sclerosis an lucency in the region and some soft tissue calcification anterior to this region. This could be the sequela trauma. Again underlying lesion cannot be excluded. Correlation needs to be made. Infection cannot be excluded. Consider MR pre and postcontrast to further evaluate at this time. Consider bone scan. More inferior in the sternum and there is mild step-off with expansion. Again this could be the sequela of previous trauma. Correlation recommended clinically. This could also be evaluated with MRI and/or bone scan. Limited imaging of the upper abdomen demonstrates probable dilatation of the common duct to 1.6 cm. This is significant. Ultrasound would be recommended to fully evaluate versus CT or MR Electronically signed by: Rafy Newberry MD 05/23/2024 08:37 AM EDT
[2024-04-26] MEDS: iohexoL 350 MG/ML 100 ML INFUS..BTL 65 ML IV (09:23)
[2024-04-29 08:42] LABS: Creatinine POC 0.7 mg/dL (0.5-1.4); GFR POC > 60
== END 2024-04-26 08:18 | disposition home or self-care (01) ==
LOC: HO.CT 08:17
PROVIDERS: PCP Pediatrics; Visit Provider Pediatrics
DX: Z87.01 Personal history of pneumonia (recurrent) (principal)
CPT/HCPCS: 71260; 82565; Q9967